=== PATIENT | male | born 1965 | race Caucasian/White ===

== ENCOUNTER 2023-08-16 18:27 | Emergency (ER) | payer OTHER, SELFPAY ==
[2023-08-16] VITALS (13 sets, daily range): BP systolic 143–170; BP diastolic 97–114; PULSE 101–125; TEMP 36.6; O2SAT 93–95; BMI 98.2
--- NOTE | 2023-08-16 18:36 | CT_ITS ---
The [address] [address] Patient Name: RHIANNON JARAMILLO MRN: [id number] date: 1965 Sex: M Assigned Patient Location: ED.MAIN Current Patient Location: Accession/Order Number: [id number] Exam Date: 08/16/2023 19:01 Report Date: 08/16/2023 19:58 At the request of: MALCOLM PATIÑO Procedure: CT head/brain wo con EXAM: CT head/brain wo con, CT cervical spine wo con HISTORY: weakness COMPARISON: None. TECHNIQUE: Axial CT scans through the head and cervical spine were obtained without IV contrast administration. Dose reduction techniques were achieved by using: automated exposure control and/or adjustment of mA and /or kV according to patient size and/or use of iterative reconstruction technique. CT BRAIN FINDINGS: There is no evidence of acute intracranial hemorrhage or abnormal extra-axial fluid collection. No mass effect or midline shift is seen. There is no evidence of large acute territorial infarction. There is no hydrocephalus. No definite acute fracture is identified. Soft tissues are unremarkable. The visualized orbits show no abnormality. The visualized paranasal sinuses show no air-fluid level. Mastoid air cells are clear. CT/CT head/brain wo con IMPRESSION: No CT evidence of acute intracranial abnormality. CT CERVICAL SPINE FINDINGS: No acute fracture or posttraumatic malalignment is seen. The dens and lateral masses of C1 are symmetric. There is straightening of the normal cervical lordotic curvature. Multilevel endplate, uncovertebral and facet arthrosis are seen. Findings are most pronounced at C5-6 and C6-7 levels. There is mild disc space narrowing at C6-7 level. There are multilevel mild disc-osteophyte complexes, resulting in mild to moderate spinal canal narrowing at C5-6 level.. There are severe neural foraminal narrowing at bilateral C5-6 and right C6-7 levels, secondary to uncovertebral and facet arthropathy. There is mild to moderate degenerative changes of atlantoaxial joint. The prevertebral soft tissue space appears normal. Visualized lung apices are clear. IMPRESSION: No visualized acute cervical spine abnormality. Multilevel cervical spondylosis, as described. Electronically authenticated by: EVENS LEIGH Date: 08/16/2023 19:58
--- NOTE | 2023-08-16 18:36 | CT_ITS ---
The [address] [address] Patient Name: RHIANNON JARAMILLO MRN: [id number] date: 1965 Sex: M Assigned Patient Location: ED.MAIN Current Patient Location: Accession/Order Number: [id number] Exam Date: 08/16/2023 19:01 Report Date: 08/16/2023 19:58 At the request of: MALCOLM PATIÑO Procedure: CT cervical spine wo con EXAM: CT head/brain wo con, CT cervical spine wo con HISTORY: weakness COMPARISON: None. TECHNIQUE: Axial CT scans through the head and cervical spine were obtained without IV contrast administration. Dose reduction techniques were achieved by using: automated exposure control and/or adjustment of mA and /or kV according to patient size and/or use of iterative reconstruction technique. CT BRAIN FINDINGS: There is no evidence of acute intracranial hemorrhage or abnormal extra-axial fluid collection. No mass effect or midline shift is seen. There is no evidence of large acute territorial infarction. There is no hydrocephalus. No definite acute fracture is identified. Soft tissues are unremarkable. The visualized orbits show no abnormality. The visualized paranasal sinuses show no air-fluid level. Mastoid air cells are clear. CT/CT cervical spine wo con IMPRESSION: No CT evidence of acute intracranial abnormality. CT CERVICAL SPINE FINDINGS: No acute fracture or posttraumatic malalignment is seen. The dens and lateral masses of C1 are symmetric. There is straightening of the normal cervical lordotic curvature. Multilevel endplate, uncovertebral and facet arthrosis are seen. Findings are most pronounced at C5-6 and C6-7 levels. There is mild disc space narrowing at C6-7 level. There are multilevel mild disc-osteophyte complexes, resulting in mild to moderate spinal canal narrowing at C5-6 level.. There are severe neural foraminal narrowing at bilateral C5-6 and right C6-7 levels, secondary to uncovertebral and facet arthropathy. There is mild to moderate degenerative changes of atlantoaxial joint. The prevertebral soft tissue space appears normal. Visualized lung apices are clear. IMPRESSION: No visualized acute cervical spine abnormality. Multilevel cervical spondylosis, as described. Electronically authenticated by: EVENS BILLU Date: 08/16/2023 19:58
--- NOTE | 2023-08-16 18:36 | XR_ITS ---
The [address] [address] Patient Name: RHIANNON JARAMILLO MRN: [id number] date: 1965 Sex: M Assigned Patient Location: ED.MAIN Current Patient Location: ER Accession/Order Number: [id number] Exam Date: 08/16/2023 19:01 Report Date: 08/16/2023 20:05 At the request of: MALCOLM PATIÑO Procedure: XR chest 1V XR chest 1V 08/16/2023 6:01 PM CDT: History: weakness Comparison: None. Technique: 1 view chest Findings: The cardiomediastinal silhouette is enlarged. There is no edema. The lungs are clear without infiltrate, effusion, or pneumothorax. The bones are intact. XR/XR chest 1V Impression: Cardiomegaly without acute cardiopulmonary process. Electronically authenticated by: KIANA TOPETE Date: 08/16/2023 20:05
--- NOTE | 2023-08-16 18:36 | ECG_ITS ---
The [facility] Test Date: 2023-08-16 Pat Name: Bro Torre Department: Room: - Gender: Male [employer]: : 1965 Requested By: Order Number: [id number] Reading MD: BAILEY MARSHALL Measurements Intervals [place] Rate: 125 P: 72 NH: 140 QRS: 20 QRSD: 100 T: -30 QT: 312 QTc: 386 Interpretive Statements 1120 Sinus tachycardia 4068 Nonspecific Twave abnormality IVCD 9140 abnormal rhythm ECG No previous ECG available for comparison Electronically Signed On 08-17-2023 7:34:03 EDT by BAILEY MARSHALL
--- NOTE | 2023-08-16 18:44 | ED_ITS ---
HPI HPI - General Adult General Chief complaint: Alcohol Stated complaint: ALTERED MENTAL STATUS Time Seen by Provider: 08/16/23 18:29 Mode of arrival: ambulance Limitations: altered mental status Limitations comment: ETOH USE History of Present Illness HPI narrative: 58-year-old male to the emergency department with a chief complaint of altered mental status. Per EMS report the patient went to take a nap around 4 PM. His attempted to wake him up to take him to dinner and found him to be drowsy. 911 was called. Patient reports that he was drinking heavily. He reports that he was drinking Stephen and Coke. He denies any headache, vision changes, numbness, chest pain, shortness of breath, fever, sweats, chills. He reports nausea and vomiting. He reports that his whole body feels heavy. Related Data Allergies Allergy/AdvReac Type Severity Reaction Status Date / Time No Known Drug Allergies Allergy Verified 08/16/23 18:37 Opioid HPI Opioid Management Most Recent Opioid Data: No Data to Display Review of Systems ROS Status of ROS 10 or more systems reviewed and unremark able except as noted in history and below Exam Narrative Exam Narrative: VITALS: I have reviewed the triage vital signs. GENERAL: Actively vomiting adult male NEURO: Alert and oriented x 3. Sensation intact in all extremities. Moves all four extremities with normal coordination and strength accept when asked to do so. No dysarthria. No aphasia. No Eliezer inattention or neglect. No facial palsy. No gaze palsy. No visual field deficit. EYES: PERRL. No scleral icterus or conjunctival injection. No discharge. HENT: Normocephalic, atraumatic. Hearing is grossly intact. Nares grossly patent and without discharge. Mucous membranes moist. NECK: No JVD. Patient moves neck without restriction. CARDIO: Rhythm regular. Normal rate. No murmur, rub, or gallop. Pulses equal bilaterally in the upper and lower extremity. No lower extremity edema. PULM: Lungs clear to auscultation in all puentes. No wheezes, rales, or rhonchi. No conversational dyspnea. No splinting, stridor, or accessory muscle use. GI/: Abdomen is soft and non-tender. Normoactive bowel sounds. EXTREMITIES: Symmetric muscle bulk. No joint swelling. No clubbing, cyanosis, or deformity. SKIN: Warm and dry. Normal turgor. No rash or lesions appreciated. PSYCH: Bizarre affect Constitutional Vital Signs, click to edit/add: Last Vital Signs Pulse 125 H 08/16/23 18:33 Resp 23 H 08/16/23 18:33 BP 163/111 H 08/16/23 18:33 Pulse Ox 95 08/16/23 18:33 O2 Del Method Room Air 08/16/23 18:33 Course Vital Signs Vital signs: Vital Signs Pulse Rate 125 H 08/16/23 18:33 Respiratory Rate 23 H 08/16/23 18:33 Blood Pressure 163/111 H 08/16/23 18:33 Pulse Oximetry 95 08/16/23 18:33 Oxygen Delivery Method Room Air 08/16/23 18:33 Pulse Rate 125 H 08/16/23 18:33 Respiratory Rate 23 H 08/16/23 18:33 Blood Pressure 163/111 H 08/16/23 18:33 Pulse Oximetry 95 08/16/23 18:33 Oxygen Delivery Method Room Air 08/16/23 18:33 Medical Decision Making [facility] Narrative Medical decision making narrative: 58-year-old male to the emergency department chief complaint of altered mental status. Vital stable, the patient is afebrile. Altered mental status workup was initiated. Patient reports he was drinking heavily today. Patient states he cannot move his body. He is visualized moving all extremities in a coordinated manner with full strength. For instance he is able to hold emesis basin with each arm and lifted to his face in a coordinated manner when vomiting. When he is asked to move his extremities become tense and he refuses to move them. He answers all questions appropriately however answers them in a staccato fashion. Bizarre presentation has psychiatric overtones. CT scan and cervical spine are ordered. Basic labs are ordered. Patient agrees with this plan. Zofran was given for his nausea and vomiting. Care was signed out to Dr. Perez with results of diagnostic workup and disposition pending. Yunior May DO, FAAEM Medical Records Medical records reviewed: Yes I reviewed the patient's medical records Lab Data Lab results reviewed: Yes I reviewed the patient's lab results Discharge Plan Discharge Chief Complaint: Alcohol Clinical Impression: Altered mental status Patient Disposition: Still a Patient Print Language: Irish Referrals: LAURITA HDEZ [Primary Care Provider] - 1 week
[2023-08-16] MEDS: ONDANSETRON PF 4 MG/2 ML VIAL IV (18:49)
[2023-08-16 18:54] LABS: Glucometer 200 mg/dL (74-106)
[2023-08-16 19:03] LABS: Basophils Absolute Auto 0.1 10^3/uL (0.0-0.1); Basophils Percent Auto 0.6 % (0.2-2.0); Eosinophils Absolute Auto 0.2 10^3/uL (0.0-0.7); Eosinophils Percent Auto 1.7 % (0.9-7.0); Hematocrit 41.1 % (42.0-54.0); Hemoglobin 14.4 g/dL (14.0-18.0); Immature Granulocytes Abs Auto 0.08 10^3/uL (0.00-0.03); Immature Granulocytes Pct Auto 0.8 % (0.0-0.5); Lymphocytes Absolute Auto 2.4 10^3/uL (1.2-3.8); Lymphocytes Percent Auto 22.6 % (20.5-60.0); Mean Corpuscular Hemoglobin 33.3 pg (25.9-34.0); Mean Corpuscular Volume 94.9 fL (80.0-94.0); Mean Platelet Volume 9.4 fL (9.5-13.5); Monocytes Absolute Auto 0.6 10^3/uL (0.3-0.8); Monocytes Percent Auto 5.6 % (1.7-12.0); Neutrophils Absolute Auto 7.3 10^3/uL (1.4-6.5); Neutrophils Percent Auto 68.7 % (43.0-75.0); Platelet Count 256 10^3/uL (150-450); Red Blood Count 4.33 10^6/uL (4.70-6.10); Red Cell Distribution Width 13.8 % (11.0-15.0); White Blood Count 10.7 10^3/uL (4.0-11.0)
[2023-08-16 19:17] LABS: INR 1.13; Prothrombin Time 11.8 sec (9.0-11.6)
[2023-08-16 19:29] LABS: Alanine Aminotransferase 90 U/L (16-63); Albumin Globulin Ratio 1.1; Albumin Level 3.7 g/dL (3.4-5.0); Alkaline Phosphatase 85 U/L (46-116); Anion Gap 20.4; Aspartate Amino Transferase 55 U/L (15-37); BUN Creatinine Ratio 6.8; Bilirubin Total 0.6 mg/dL (0.2-1.0); Calcium 9.1 mg/dL (8.5-10.1); Carbon Dioxide 17.9 mmol/L (21.0-32.0); Chloride 101 mmol/L (98-107); Estimated GFR (African America >60 (>=60); Estimated GFR (Non-African Ame >60 (>=60); Ethanol 185 mg/dL; Globulin 3.5 g/dL; Glucose 217 mg/dL (74-106); Magnesium 1.5 mg/dL (1.8-2.4); Potassium 3.3 mmol/L (3.5-5.1); Sodium 136 mmol/L (136-145); Total Protein 7.2 g/dL (6.4-8.2)
[2023-08-16] MEDS: 0.9 % SODIUM CHLORIDE 1,000 ML 999 ML IV (19:45)
[2023-08-16 21:35] LABS: Bilirubin Urine NEGATIVE (NEGATIVE); Blood Urine SMALL (NEGATIVE); Clarity Urine CLEAR (CLEAR); Color Urine LT. YELLOW (YELLOW); Glucose Urine UA 500 mg/dL (NEGATIVE); Ketones Urine 40 mg/dL (NEGATIVE); Leukocyte Esterase Urine NEGATIVE (NEGATIVE); Nitrite Urine NEGATIVE (NEGATIVE); Protein Urine NEGATIVE (NEG/TRACE); Specific Gravity Urine 1.025 (1.005-1.025); Urobilinogen Urine 0.2 EU/dL (0.2-1.0)
[2023-08-16 21:36] LABS: Urine Microscopic Indicated YES
[2023-08-16 21:45] LABS: Amphetamine Screen Urine NEGATIVE (NEGATIVE); Bacteria Urine NONE SEEN #/HPF (NONE SEEN); Barbiturates Screen Urine NEGATIVE (NEGATIVE); Benzodiazepines Screen Urine NEGATIVE (NEGATIVE); Buprenorphine Screen Urine NEGATIVE (NEGATIVE); Cannabinoid Screen Urine NEGATIVE (NEGATIVE); Cast Seen? NONE SEEN #/LPF (NONE SEEN); Cocaine Screen Urine NEGATIVE (NEGATIVE); Crystals Seen? None Seen #/HPF (None Seen); Methadone Screen Urine NEGATIVE (NEGATIVE); Methamphetamines Screen Urine NEGATIVE (NEGATIVE); Mucus Urine NONE SEEN (NONE SEEN); Opiate Screen Urine NEGATIVE (NEGATIVE); Oxycodone Screen Urine NEGATIVE (NEGATIVE); Phencyclidine Screen Urine NEGATIVE (NEGATIVE); Squamous Epithelial Cell Urine NONE SEEN #/LPF (NONE/RARE); Tricyclic Antidepressant Urine NEGATIVE (NEGATIVE); Urine Culture Indicated NO; WBC Urine 0-2 #/HPF (NONE SEEN)
== END 2023-08-16 22:04 | disposition home or self-care (01) ==
PROVIDERS: Student in an Organized Health Care Education/Training Program; Emergency Provider Internal Medicine
DX: F10.129 Alcohol abuse with intoxication, unspecified (principal); E11.9 Type 2 diabetes mellitus without complications; R41.82 Altered mental status, unspecified; R00.0 Tachycardia, unspecified
CPT/HCPCS: 36415; 36416; 70450; 71045; 72125; 80053; 80307; 80320; 81001; 82948; 83690; 83735; 84100; 85025; 85610; 93005; 96361; 96374; 99285; J2405